=== PATIENT | female | born 2000 | race Caucasian/White ===

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

== ENCOUNTER → 2018-06-14 | Outpatient (CLI) | payer BC | LOC: M WUC 10:37 | PROVIDERS: ATTEND Registered Nurse | DX: L70.0 Acne vulgaris (principal) ==

== ENCOUNTER 2018-07-08 11:50 | Emergency (ER) | payer BC ==
[~2018-07-08] VITALS: Ht 170.2 cm; Wt 72.7 kg
[2018-07-08] MEDS ORDERED: DOXY50CA (11:55)
[2018-07-08] MEDS ORDERED: SPIR50TA4 (11:55)
[2018-07-08 13:10] LABS: BASO % 0.3 % (0.0-1.0); EOS # 0.1 10^3/uL (0.0-0.50); HEMATOCRIT 45.9 % (36.0-47.0); HEMOGLOBIN 15.4 g/dl (12.0-15.5); LYMPH # 1.6 10^3/uL (1.5-6.5); LYMPH % 22.9 % (24.0-44.0); MEAN CORPUSCULAR HEMOGLOBIN 31.6 pg (27.0-33.0); MEAN CORPUSCULAR HGB CONC 33.6 g/dl (32.0-36.5); MEAN CORPUSCULAR VOLUME 94.3 fl (80.0-96.0); MONO # 0.5 10^3/uL (0.0-0.8); MONO % 6.7 % (0.0-5.0); NEUTROPHILS # 4.6 10^3/uL (1.8-7.7); NEUTROPHILS % 67.8 % (36.0-66.0); PLATELET COUNT, AUTOMATED 269 10^3/uL (150-450); RED BLOOD COUNT 4.87 10^6/uL (4.00-5.40); WHITE BLOOD COUNT 6.9 10^3/uL (4.0-10.0)
[2018-07-08 13:24] LABS: HCG, SERUM QUALITATIVE NEGATIVE (NEGATIVE)
[2018-07-08 13:33] LABS: BLOOD UREA NITROGEN 12 MG/DL (7-18); C REACTIVE PROTEIN QUANTITATIV < 0.30 MG/DL (0.00-0.30); CALCIUM LEVEL 9.4 MG/DL (8.5-10.1); CARBON DIOXIDE LEVEL 30 MEQ/L (21-32); CHLORIDE LEVEL 104 MEQ/L (98-107); CREATININE FOR GFR 0.78 MG/DL (0.55-1.30); GLUCOSE, FASTING 66 MG/DL (70-100); MAGNESIUM LEVEL 2.1 MG/DL (1.4-2.0); POTASSIUM SERUM 4.6 MEQ/L (3.5-5.1); SODIUM LEVEL 137 MEQ/L (136-145); THYROID STIMULATING HORMONE 0.927 uIU/ML (0.463-3.98)
[2018-07-08 13:49] LABS: ERYTHROCYTE SEDIMENTATION RATE 4 mm/hr (0-20)
--- NOTE | 2018-07-08 14:17 | REP ---
CT Head without contrast HISTORY: Headache COMPARISON: 01/18/2014 There is no intraparenchymal hemorrhage, acute infarct, mass or midline shift. The ventricular system is normal in appearance. There is no extra cerebral collection. There is no fracture. The visualized sinuses are clear. IMPRESSION: There is no intracranial lesion. Electronically Signed by Bjorn Nova MD 07/08/2018 02:09 P
--- NOTE | 2018-07-08 14:21 | REP ---
CT cervical spine without contrast HISTORY: Headache COMPARISON: 01/18/2014 There is no acute fracture or subluxation. There is no disc bulge or herniation. The spinal canal and neural foramina are patent. The intervertebral discs and vertebral bodies are normal in height. IMPRESSION: There is no acute fracture or subluxation. Electronically Signed by Bjorn Nova MD 07/08/2018 02:13 P
[2018-07-08 15:21] VITALS: BP 118/72
== END 2018-07-08 15:37 | disposition home or self-care (01) ==
LOC: M ED 11:50
DX: R51 Headache (principal)

== ENCOUNTER → 2020-10-07 | Outpatient (CLI) | payer BC ==
[~2020-10-07] MED LIST: DOXY50CA; SPIR50TA4
[2020-10-07 16:00] LABS: URINE PREG TEST NEGATIVE (NEGATIVE)
[2020-10-07 16:14] LABS: BASO % 0.3 % (0.0-1.0); EOS # 0.1 10^3/uL (0.0-0.5); HEMATOCRIT 44.8 % (36.0-47.0); HEMOGLOBIN 14.9 g/dl (12.0-15.5); LYMPH # 1.6 10^3/uL (1.5-5.0); MEAN CORPUSCULAR HEMOGLOBIN 31.4 pg (27.0-33.0); MEAN CORPUSCULAR HGB CONC 33.3 g/dl (32.0-36.5); MEAN CORPUSCULAR VOLUME 94.5 fl (80.0-96.0); MONO # 0.5 10^3/uL (0.0-0.8); MONO % 7.7 % (2.0-8.0); NEUTROPHILS # 3.8 10^3/uL (1.5-8.5); NEUTROPHILS % 63.7 % (36.0-66.0); PLATELET COUNT, AUTOMATED 292 10^3/uL (150-450); RED BLOOD COUNT 4.74 10^6/uL (4.00-5.40)
[2020-10-07 16:41] LABS: ALT/SGPT 18 U/L (12-78); BILIRUBIN,DIRECT 0.1 MG/DL (0.0-0.2); BILIRUBIN,TOTAL 0.5 MG/DL (0.2-1.0); CHOLESTEROL LEVEL 169 MG/DL (<200); CHOLESTEROL RISK RATIO 3.313 (<5); HCG, SERUM QUANTITATIVE < 1.0 MIU/ML; HDL CHOLESTEROL 51 MG/DL (>40); LDL CHOLESTEROL 100 MG/DL (<100); NON-HDL-C 118 MG/DL; TOTAL PROTEIN 7.4 GM/DL (6.4-8.2); TRIGLYCERIDES LEVEL 88 MG/DL (<150)
== END ==
LOC: M WUC 13:38
DX: Z51.81 Encounter for therapeutic drug level monitoring (principal); Z79.899 Other long term (current) drug therapy; L70.0 Acne vulgaris

== ENCOUNTER 2021-02-16 09:02 | Emergency (ER) | payer BC ==
[~2021-02-16] VITALS: Ht 170.2 cm; Wt 83.8 kg
[2021-02-16] MEDS ORDERED: ABSO30CA PO (09:10)
[2021-02-16 09:45] LABS: HEMATOCRIT 44.7 % (36.0-47.0); HEMOGLOBIN 15.1 g/dl (12.0-15.5); MEAN CORPUSCULAR HEMOGLOBIN 31.3 pg (27.0-33.0); MEAN CORPUSCULAR HGB CONC 33.8 g/dl (32.0-36.5); MEAN CORPUSCULAR VOLUME 92.7 fl (80.0-96.0); PLATELET COUNT, AUTOMATED 303 10^3/uL (150-450); RED BLOOD COUNT 4.82 10^6/uL (4.00-5.40); WHITE BLOOD COUNT 6.2 10^3/uL (4.0-10.0)
[2021-02-16 09:49] LABS: BLOOD UREA NITROGEN 10 MG/DL (7-18); CALCIUM LEVEL 9.3 MG/DL (8.5-10.1); CARBON DIOXIDE LEVEL 30 MEQ/L (21-32); CHLORIDE LEVEL 102 MEQ/L (98-107); CREATININE FOR GFR 0.78 MG/DL (0.55-1.30); GLOMERULAR FILTRATION RATE > 60.0 (>60); GLUCOSE, FASTING 89 MG/DL (70-100); POTASSIUM SERUM 3.9 MEQ/L (3.5-5.1); SODIUM LEVEL 137 MEQ/L (136-145)
[2021-02-16 09:51] LABS: HCG, SERUM QUALITATIVE NEGATIVE (NEGATIVE)
[2021-02-16] MEDS ORDERED: ISOVUE-370 76% 100ML VIAL As Ordered ONE (10:13)
--- NOTE | 2021-02-16 10:20 | REP ---
INDICATION: chest pain s/p ablation COMPARISON: None. TECHNIQUE: Portable AP view of the chest FINDINGS: The mediastinum and cardiac silhouette are within normal limits for portable technique. The lung palu are clear without acute consolidation, effusion, or pneumothorax. Skeletal structures are intact. IMPRESSION: No acute cardiopulmonary process appreciated. <Electronically signed by Carlos Ceballos > 02/16/21 [id number]
--- NOTE | 2021-02-16 10:30 | REP ---
INDICATION: chest pain, 5 days s/p ablation r/o PE, pericardial effusion COMPARISON: None. TECHNIQUE: Axial contrast enhanced images from the thoracic inlet to the upper abdomen using pulmonary embolus technique with multiplanar re-formations. 75 ml Isovue 370 intravenous contrast material administered without complication. This CT examination was performed using the following dose reduction techniques: Automated exposure control, adjustment of mA and/or kv according to the patient's size, and use of iterative reconstruction technique. FINDINGS: Satisfactory enhancement of the pulmonary vasculature is achieved and no filling defects are identified to suggest pulmonary embolus. Further evaluation of the mediastinum demonstrates normal thoracic aorta, heart and pericardium. The bilateral lung paul are well aerated and clear without consolidation pleural effusion or pneumothorax. Tracheobronchial tree is patent. No nodule or mass lesion is identified. No adenopathy noted. Surrounding musculoskeletal structures intact IMPRESSION: No evidence for pulmonary embolus. No acute mediastinal or pleural parenchymal process. <Electronically signed by Carlos Ceballos > 02/16/21 102
[2021-02-16] MEDS ORDERED: IBUP80TA PO (12:08)
[2021-02-16 12:22] VITALS: BP 111/75
--- NOTE | 2021-02-16 16:14 | ECGEPIP ---
[facility] - ED Test Date: 2021-02-16 Pat Name: UMER MULLEN Department: Room: - Gender: Female Ambulatory Care: LR : 2000 Requested By: Nile Hoskins Order Number: [id number] Reading MD: Shahid Beckman Measurements Intervals [place] Rate: 64 P: 46 WV: 152 QRS: 18 QRSD: 78 T: 36 QT: 392 QTc: 404 Interpretive Statements Normal sinus rhythm with sinus arrhythmia Similar to tracing done 09-17-17 Electronically Signed on 02-16-2021 16:13:46 EST by Shahid Beckman
== END 2021-02-16 12:28 | disposition home or self-care (01) ==
LOC: M ED 09:02
DX: I30.9 Acute pericarditis, unspecified (principal); Z86.79 Personal history of other diseases of the circulatory system
CPT/HCPCS: 71045; 71275; 80048; 84703; 85027; 86140; 93005; 93041; 99285; Q9967

== ENCOUNTER → 2021-05-02 | Outpatient (CLI) | payer BC ==
[~2021-05-02] MED LIST changes: +ABSO30CA PO; +IBUP80TA PO
[2021-05-02 16:11] LABS: BASO % 0.6 % (0.0-1.0); EOS # 0.1 10^3/uL (0.0-0.5); HEMOGLOBIN 14.7 g/dl (12.0-15.5); LYMPH # 1.8 10^3/uL (1.5-5.0); LYMPH % 25.2 % (24.0-44.0); MEAN CORPUSCULAR HEMOGLOBIN 30.8 pg (27.0-33.0); MEAN CORPUSCULAR HGB CONC 32.7 g/dl (32.0-36.5); MEAN CORPUSCULAR VOLUME 94.3 fl (80.0-96.0); MONO # 0.6 10^3/uL (0.0-0.8); NEUTROPHILS # 4.5 10^3/uL (1.5-8.5); NEUTROPHILS % 63.4 % (36.0-66.0); PLATELET COUNT, AUTOMATED 296 10^3/uL (150-450); RED BLOOD COUNT 4.77 10^6/uL (4.00-5.40); WHITE BLOOD COUNT 7.1 10^3/uL (4.0-10.0)
[2021-05-02 16:16] LABS: HCG, SERUM QUALITATIVE NEGATIVE (NEGATIVE)
[2021-05-02 16:23] LABS: ALBUMIN 3.6 GM/DL (3.2-5.2); ALT/SGPT 21 U/L (12-78); BILIRUBIN,DIRECT < 0.1 MG/DL (0.0-0.2); BILIRUBIN,TOTAL 0.5 MG/DL (0.2-1.0); CHOLESTEROL LEVEL 235 MG/DL (<200); CHOLESTEROL RISK RATIO 5.222 (<5); HDL CHOLESTEROL 45 MG/DL (>40); LDL CHOLESTEROL 151 MG/DL (<100); NON-HDL-C 190 MG/DL; TOTAL PROTEIN 7.2 GM/DL (6.4-8.2); TRIGLYCERIDES LEVEL 194 MG/DL (<150)
[2021-05-03 09:48] LABS: URINE PREG TEST NEGATIVE (NEGATIVE)
== END ==
LOC: M WUC 11:25
DX: Z79.899 Other long term (current) drug therapy (principal)

== ENCOUNTER 2021-10-18 01:00 | Emergency (ER) | payer BC ==
[~2021-10-18] VITALS: Ht 170.2 cm; Wt 81.8 kg
[2021-10-18 01:33] LABS: BACTERIA, URINE MOD AMOUNT; HYALINE CAST, URINE NONE SEEN /lpf (0-1); SQUAMOUS EPITHELIAL CELL URINE MOD AMOUNT /hpf (SMALL AMT)
[2021-10-18 02:48] VITALS: BP 113/61
[2021-10-18 03:12] LABS: BASO % 0.4 % (0.0-1.0); EOS # 0.2 10^3/uL (0.0-0.5); EOS % 1.9 % (0.0-3.0); HEMATOCRIT 40.9 % (36.0-47.0); HEMOGLOBIN 13.7 g/dl (12.0-15.5); LYMPH # 1.3 10^3/uL (1.5-5.0); LYMPH % 11.6 % (24.0-44.0); MEAN CORPUSCULAR HEMOGLOBIN 31.7 pg (27.0-33.0); MEAN CORPUSCULAR HGB CONC 33.5 g/dl (32.0-36.5); MEAN CORPUSCULAR VOLUME 94.7 fl (80.0-96.0); MONO # 0.7 10^3/uL (0.0-0.8); MONO % 6.2 % (2.0-8.0); NEUTROPHILS % 79.5 % (36.0-66.0); PLATELET COUNT, AUTOMATED 258 10^3/uL (150-450); RED BLOOD COUNT 4.32 10^6/uL (4.00-5.40); WHITE BLOOD COUNT 11.3 10^3/uL (4.0-10.0)
[2021-10-18 03:44] LABS: HCG, SERUM QUALITATIVE NEGATIVE (NEGATIVE)
[2021-10-18 04:18] LABS: ALBUMIN 3.5 GM/DL (3.2-5.2); ALT/SGPT 20 U/L (12-78); BILIRUBIN,DIRECT < 0.1 MG/DL (0.0-0.2); BILIRUBIN,TOTAL 0.2 MG/DL (0.2-1.0); BLOOD UREA NITROGEN 14 MG/DL (7-18); CALCIUM LEVEL 8.8 MG/DL (8.5-10.1); CARBON DIOXIDE LEVEL 27 MEQ/L (21-32); CHLORIDE LEVEL 105 MEQ/L (98-107); CREATININE FOR GFR 0.78 MG/DL (0.55-1.30); GLOMERULAR FILTRATION RATE > 60.0 (>60); GLUCOSE, FASTING 107 MG/DL (70-100); LIPASE 149 U/L (73-393); SODIUM LEVEL 137 MEQ/L (136-145); TOTAL PROTEIN 6.8 GM/DL (6.4-8.2)
[2021-10-18] MEDS ORDERED: PHENAZOPYRIDINE 100 MG TAB PO ONE (04:55)
[2021-10-18] MEDS ORDERED: CEPHALEXIN 500 MG CAP PO ONE (04:55)
[2021-10-18] MEDS ORDERED: PYRI1TAB5 PO (04:56)
[2021-10-18] MEDS ORDERED: CEPH500C PO (04:56)
== END 2021-10-18 05:15 | disposition home or self-care (01) ==
LOC: M ED 01:00
DX: N39.0 Urinary tract infection, site not specified (principal)

== ENCOUNTER → 2022-05-03 | Outpatient (CLI) | payer BC ==
[~2022-05-03] MED LIST changes: +CEPH500C PO; +PYRI1TAB5 PO
[2022-05-03 13:43] LABS: BASO % 0.5 % (0.0-1.0); EOS # 0.1 10^3/uL (0.0-0.5); EOS % 1.8 % (0.0-3.0); HEMATOCRIT 42.4 % (36.0-47.0); HEMOGLOBIN 14.4 g/dl (12.0-15.5); LYMPH # 1.6 10^3/uL (1.5-5.0); LYMPH % 21.2 % (24.0-44.0); MEAN CORPUSCULAR HEMOGLOBIN 31.8 pg (27.0-33.0); MEAN CORPUSCULAR VOLUME 93.6 fl (80.0-96.0); MONO # 0.5 10^3/uL (0.0-0.8); NEUTROPHILS # 5.3 10^3/uL (1.5-8.5); PLATELET COUNT, AUTOMATED 289 10^3/uL (150-450); RED BLOOD COUNT 4.53 10^6/uL (4.00-5.40); WHITE BLOOD COUNT 7.7 10^3/uL (4.0-10.0)
[2022-05-03 14:14] LABS: ALBUMIN 3.7 G/DL (3.2-5.2); ALKALINE PHOSPHATASE 42 U/L (46-116); ALT/SGPT 16 U/L (7.0-40); AST/SGOT 14 U/L (<34); BILIRUBIN,DIRECT 0.1 MG/DL (<0.4); BILIRUBIN,TOTAL 0.5 MG/DL (0.3-1.2); BLOOD UREA NITROGEN 10 MG/DL (9-23); CALCIUM LEVEL 9.2 MG/DL (8.5-10.1); CARBON DIOXIDE LEVEL 28 MMOL/L (20-31); CHLORIDE LEVEL 104 MMOL/L (98-107); CREATININE FOR GFR 0.74 MG/DL (0.55-1.30); GLOMERULAR FILTRATION RATE > 60.0 (>60); GLUCOSE, FASTING 82 MG/DL (60-100); SODIUM LEVEL 137 MMOL/L (136-145)
[2022-05-03 14:30] LABS: HEPATITIS B SURFACE ANTIGEN NEGATIVE (NEGATIVE)
[2022-05-03 14:44] LABS: HIV SCREEN CENTAUR SOURCE NEGATIVE (NEGATIVE)
[2022-05-03 14:51] LABS: HEPATITIS C VIRUS ABY INDEX < 0.0 INDEX (<0.8)
[2022-05-03 14:52] LABS: HEPATITIS B CORE ANTIBODY IGM NEGATIVE (NEGATIVE)
== END ==
LOC: M RAD 11:51
PROVIDERS: ATTEND Nurse Practitioner Family
DX: L73.2 Hidradenitis suppurativa (principal)

== ENCOUNTER → 2023-05-15 | Outpatient (REF) | payer BC ==
[2023-05-15 16:47] LABS: URINE PREG TEST POSITIVE (NEGATIVE)
== END ==
LOC: M LAB REF 16:23
PROVIDERS: ATTEND Physician Assistant Medical
DX: Z32.01 Encounter for pregnancy test, result positive (principal)

== ENCOUNTER 2023-07-21 22:43 | Emergency (ER) | payer BC ==
[~2023-07-21] VITALS: Ht 170.2 cm; Wt 89.4 kg
[2023-07-21] MEDS ORDERED: MORPHINE 2 MG/ML 1ML VIAL IV ONE (23:50)
[2023-07-22] MEDS: METOCLOPRAMIDE INJ 10MG/2ML VIAL IV ONE (00:13)
[2023-07-22] MEDS: NS 1,000 ML IV ONE (00:14)
[2023-07-22 00:38] LABS: BASO # 0.1 10^3/uL (0.0-0.2); BASO % 0.2 % (0.0-1.0); EOS % 0.1 % (0.0-3.0); HEMATOCRIT 42.3 % (36.0-47.0); HEMOGLOBIN 14.7 g/dl (12.0-15.5); LYMPH # 0.6 10^3/uL (1.5-5.0); MEAN CORPUSCULAR HEMOGLOBIN 31.9 pg (27.0-33.0); MEAN CORPUSCULAR HGB CONC 34.8 g/dl (32.0-36.5); MEAN CORPUSCULAR VOLUME 91.8 fl (80.0-96.0); MONO # 0.5 10^3/uL (0.0-0.8); MONO % 2.4 % (2.0-8.0); NEUTROPHILS # 19.7 10^3/uL (1.5-8.5); NEUTROPHILS % 93.8 % (36.0-66.0); PLATELET COUNT, AUTOMATED 232 10^3/uL (150-450); RED BLOOD COUNT 4.61 10^6/uL (4.00-5.40)
[2023-07-22 01:05] LABS: LIPASE 33 U/L (12-53)
[2023-07-22 01:07] LABS: ALBUMIN 3.4 G/DL (3.2-5.2); ALKALINE PHOSPHATASE 37 U/L (46-116); ALT/SGPT 15 U/L (7.0-40); AST/SGOT 10 U/L (<34); BILIRUBIN,DIRECT 0.1 MG/DL (<0.4); BILIRUBIN,TOTAL 0.4 MG/DL (0.3-1.2); BLOOD UREA NITROGEN 12 MG/DL (9-23); CALCIUM LEVEL 9.2 MG/DL (8.5-10.1); CARBON DIOXIDE LEVEL 23 MMOL/L (20-31); CHLORIDE LEVEL 104 MMOL/L (98-107); CREATININE FOR GFR 0.53 MG/DL (0.55-1.30); GLOMERULAR FILTRATION RATE > 60.0 (>60); GLUCOSE, FASTING 120 MG/DL (60-100); POTASSIUM SERUM 4.1 MMOL/L (3.5-5.1); SODIUM LEVEL 135 MMOL/L (136-145); TOTAL PROTEIN 6.9 G/DL (5.7-8.2)
[2023-07-22 02:15] LABS: BASO % 0.2 % (0.0-1.0); EOS % 0.1 % (0.0-3.0); HEMOGLOBIN 13.9 g/dl (12.0-15.5); LYMPH # 0.3 10^3/uL (1.5-5.0); LYMPH % 1.5 % (24.0-44.0); MEAN CORPUSCULAR HGB CONC 34.8 g/dl (32.0-36.5); MONO # 0.2 10^3/uL (0.0-0.8); MONO % 1.4 % (2.0-8.0); NEUTROPHILS # 16.4 10^3/uL (1.5-8.5); NEUTROPHILS % 96.4 % (36.0-66.0); PLATELET COUNT, AUTOMATED 208 10^3/uL (150-450); RED BLOOD COUNT 4.35 10^6/uL (4.00-5.40)
[2023-07-22] MEDS ORDERED: REGL10TA6 PO (02:22)
[2023-07-22] MEDS: ONDANSETRON 4MG 2ML VIAL IV ONE (02:44)
[2023-07-22 03:51] VITALS: BP 130/70; TEMP 98.2; O2SAT 100
== END 2023-07-22 03:55 | disposition home or self-care (01) ==
LOC: M ED 22:43
DX: A08.11 Acute gastroenteropathy due to Norwalk agent (principal); Z79.899 Other long term (current) drug therapy
CPT/HCPCS: 80048; 80076; 81001; 83605; 83690; 85025; 87040; 87086; 87486; 87507; 87581; 87633; 87798; 96365; 96366; 96375; 99283; J2405; J2765

== ENCOUNTER → 2023-07-26 | Outpatient (REF) | payer BC ==
[~2023-07-26] MED LIST changes: +REGL10TA6 PO
[2023-07-26 18:12] LABS: HEMATOCRIT 40.1 % (36.0-47.0); HEMOGLOBIN 13.6 g/dl (12.0-15.5); MEAN CORPUSCULAR HEMOGLOBIN 31.8 pg (27.0-33.0); MEAN CORPUSCULAR HGB CONC 33.9 g/dl (32.0-36.5); MEAN CORPUSCULAR VOLUME 93.7 fl (80.0-96.0); PLATELET COUNT, AUTOMATED 257 10^3/uL (150-450); RED BLOOD COUNT 4.28 10^6/uL (4.00-5.40); WHITE BLOOD COUNT 10.1 10^3/uL (4.0-10.0)
[2023-07-26 18:50] LABS: HIV 1&2 SCREEN NEGATIVE (NEGATIVE)
[2023-07-26 18:59] LABS: HEPATITIS C VIRUS ABY INDEX 0.02 INDEX (<0.8)
[2023-07-26 20:39] LABS: GC DNA AMPLIFICATION NEGATIVE (NEGATIVE)
== END ==
LOC: M LABDRAWP 17:20
PROVIDERS: ATTEND Advanced Practice Midwife
DX: Z34.01 Encounter for supervision of normal first pregnancy, first trimester (principal)

== ENCOUNTER → 2023-09-07 | Outpatient (CLI) | payer BC, MEDICAID | LOC: M WHC 07:30 | PROVIDERS: ATTEND Advanced Practice Midwife | DX: Z34.02 Encounter for supervision of normal first pregnancy, second trimester (principal) ==

== ENCOUNTER → 2023-10-08 | Outpatient (CLI) | payer BC, MEDICAID ==
[2023-10-08 13:20] LABS: HEMATOCRIT 37.3 % (36.0-47.0); HEMOGLOBIN 12.6 g/dl (12.0-15.5); MEAN CORPUSCULAR HEMOGLOBIN 32.2 pg (27.0-33.0); MEAN CORPUSCULAR HGB CONC 33.8 g/dl (32.0-36.5); MEAN CORPUSCULAR VOLUME 95.4 fl (80.0-96.0); PLATELET COUNT, AUTOMATED 228 10^3/uL (150-450); RED BLOOD COUNT 3.91 10^6/uL (4.00-5.40); WHITE BLOOD COUNT 9.7 10^3/uL (4.0-10.0)
[2023-10-08 13:48] LABS: GLUCOSE CHALLENGE TEST 1 HOUR 107 MG/DL (LESS THAN 140)
[2023-10-08 14:25] LABS: HIV 1&2 SCREEN NEGATIVE (NEGATIVE)
[2023-10-08 14:31] LABS: HEPATITIS C VIRUS ABY INDEX 0.03 INDEX (<0.8)
== END ==
LOC: M PLALAB 09:14
PROVIDERS: ATTEND Specialist
DX: Z36.89 Encounter for other specified antenatal screening (principal); Z3A.23 23 weeks gestation of pregnancy

== ENCOUNTER → 2023-11-20 | Outpatient (CLI) | payer BC, MEDICAID ==
[2023-11-20 13:13] LABS: HEMATOCRIT 39.5 % (36.0-47.0); HEMOGLOBIN 13.6 g/dl (12.0-15.5); MEAN CORPUSCULAR HEMOGLOBIN 32.1 pg (27.0-33.0); MEAN CORPUSCULAR HGB CONC 34.4 g/dl (32.0-36.5); MEAN CORPUSCULAR VOLUME 93.2 fl (80.0-96.0); PLATELET COUNT, AUTOMATED 193 10^3/uL (150-450); RED BLOOD COUNT 4.24 10^6/uL (4.00-5.40); WHITE BLOOD COUNT 8.8 10^3/uL (4.0-10.0)
[2023-11-20 13:14] LABS: URIC ACID 5.5 MG/DL (3.1-7.8)
[2023-11-20 13:16] LABS: LDH LACTATE DEHYDROGENASE 169 U/L (120-246)
[2023-11-20 13:17] LABS: ALT/SGPT 14 U/L (7.0-40); AST/SGOT 15 U/L (<34); BILIRUBIN,TOTAL 0.2 MG/DL (0.3-1.2); GLOMERULAR FILTRATION RATE > 60.0 (>60)
[2023-11-20 13:39] LABS: TOTAL PROTEIN,RANDOM URINE 59.4 MG/DL (0.0-14.0)
[2023-11-20 13:42] LABS: CREATININE,RANDOM URINE 159.7 MG/DL
== END ==
LOC: M PLALAB 09:46
PROVIDERS: ATTEND Specialist
DX: Z34.03 Encounter for supervision of normal first pregnancy, third trimester (principal)

== ENCOUNTER 2023-11-26 09:30 | Outpatient (CLI) | payer BC, MEDICAID ==
[~2023-11-26] VITALS: Ht 170.2 cm; Wt 102.0 kg
[2023-11-26 09:52] VITALS: BP 154/96
[2023-11-26 09:59] VITALS: BP 142/75
[2023-11-26] MEDS ORDERED: AMOX250C3 PO (09:59)
[2023-11-26] MEDS ORDERED: MUCI1TAB16 PO (09:59)
[2023-11-26] MEDS ORDERED: ALBU8.5H INH (09:59)
[2023-11-26] MEDS ORDERED: AMOX875T2 PO (10:01)
[2023-11-26 10:09] VITALS: BP 131/73
[2023-11-26] MEDS: BETAMETHASONE SOLUSPAN 6MG/ML 5ML VIAL IM SCH (10:47)
[2023-11-26 11:06] LABS: HEMOGLOBIN 12.8 g/dl (12.0-15.5); MEAN CORPUSCULAR HEMOGLOBIN 32.1 pg (27.0-33.0); MEAN CORPUSCULAR HGB CONC 34.6 g/dl (32.0-36.5); MEAN CORPUSCULAR VOLUME 92.7 fl (80.0-96.0); PLATELET COUNT, AUTOMATED 207 10^3/uL (150-450); RED BLOOD COUNT 3.99 10^6/uL (4.00-5.40); WHITE BLOOD COUNT 9.5 10^3/uL (4.0-10.0)
[2023-11-26 11:24] LABS: URIC ACID 5.9 MG/DL (3.1-7.8)
[2023-11-26 11:26] LABS: LDH LACTATE DEHYDROGENASE 177 U/L (120-246)
[2023-11-26 11:26] LABS: CREATININE,RANDOM URINE 138.6 MG/DL
[2023-11-26 11:27] LABS: ALT/SGPT 14 U/L (7.0-40); AST/SGOT 15 U/L (<34); BILIRUBIN,TOTAL 0.2 MG/DL (0.3-1.2); CREATININE FOR GFR 0.77 MG/DL (0.55-1.30); GLOMERULAR FILTRATION RATE > 60.0 (>60)
[2023-11-26 11:32] LABS: TOTAL PROTEIN,RANDOM URINE 139.1 MG/DL (0.0-14.0)
[2023-11-26 11:46] VITALS: BP 129/86
[2023-11-26] MEDS: ACETAMINOPHEN 500 MG TAB PO ONE (12:25)
[2023-11-26] MEDS: FLUCONAZOLE 50MG TABLET PO ONE (14:00)
== END 2023-11-26 14:00 | disposition home or self-care (01) ==
LOC: M LDO 09:30
PROVIDERS: ATTEND Advanced Practice Midwife
DX: O14.93 Unspecified pre-eclampsia, third trimester (principal); O23.593 Infection of other part of genital tract in pregnancy, third trimester; B37.9 Candidiasis, unspecified; Z3A.32 32 weeks gestation of pregnancy
CPT/HCPCS: 36415; 59025; 76816; 82247; 82570; 83615; 84156; 84450; 84460; 84550; 85027; 96372; G0463; J0702

== ENCOUNTER 2023-11-27 10:24 | Outpatient (CLI) | payer BC, MEDICAID ==
[~2023-11-27] VITALS: Ht 170.2 cm; Wt 101.7 kg
[2023-11-27] VITALS (11 sets, daily range): BP systolic 124–171; BP diastolic 71–86; TEMP 98.1
[~2023-11-27 10:24] MED LIST changes: +ALBU8.5H INH; +AMOX250C3 PO; +AMOX875T2 PO; +MUCI1TAB16 PO
[2023-11-27] MEDS: BETAMETHASONE SOLUSPAN 6MG/ML 5ML VIAL IM ONE (12:19)
[2023-11-27] MEDS: AUGMENTIN 875 MG TAB PO SCH (21:00)
[2023-11-28 00:08] VITALS: BP 138/80
[2023-11-28 03:34] VITALS: BP 133/79
[2023-11-28 06:00] VITALS: BP 134/68
[2023-11-29] MEDS ORDERED: AMOX125C PO (18:47)
[2023-11-29] MEDS ORDERED: ACET-897 PO (18:49)
[2023-11-29] MEDS ORDERED: PRENTAB9 PO (18:49)
== END 2023-11-28 09:40 | disposition home or self-care (01) ==
LOC: M LDO 10:24
PROVIDERS: ATTEND Specialist
DX: O14.93 Unspecified pre-eclampsia, third trimester (principal); Z3A.32 32 weeks gestation of pregnancy
CPT/HCPCS: 59025; 96372; G0463; J0702

== ENCOUNTER 2023-11-29 18:22 | Inpatient (IN) | payer BC, MEDICAID ==
[~2023-11-29] VITALS: Ht 170.2 cm; Wt 103.6 kg
[2023-11-29] MEDS ORDERED: AMOX125C PO (18:47)
[2023-11-29] MEDS ORDERED: ACET-897 PO (18:49)
[2023-11-29] MEDS ORDERED: PRENTAB9 PO (18:49)
[2023-11-29] MEDS ORDERED: HOME MED LIST COMPLETE! XX SCH (18:50)
[2023-11-29 18:53] VITALS: BP 159/88; O2SAT 97
[2023-11-29 18:54] VITALS: BP 154/86
[2023-11-29 19:10] VITALS: BP 151/85
[2023-11-29 19:25] VITALS: BP 156/82
[2023-11-29 19:57] VITALS: BP 144/83
[2023-11-29 20:41] LABS: HEMATOCRIT 37.6 % (36.0-47.0); HEMOGLOBIN 12.8 g/dl (12.0-15.5); MEAN CORPUSCULAR HEMOGLOBIN 31.8 pg (27.0-33.0); MEAN CORPUSCULAR VOLUME 93.3 fl (80.0-96.0); PLATELET COUNT, AUTOMATED 240 10^3/uL (150-450); RED BLOOD COUNT 4.03 10^6/uL (4.00-5.40); WHITE BLOOD COUNT 19.4 10^3/uL (4.0-10.0)
[2023-11-29 21:01] LABS: ALBUMIN 2.4 G/DL (3.2-5.2); ALKALINE PHOSPHATASE 108 U/L (46-116); ALT/SGPT 13 U/L (7.0-40); AST/SGOT 20 U/L (<34); BILIRUBIN,TOTAL 0.2 MG/DL (0.3-1.2); BLOOD UREA NITROGEN 21 MG/DL (9-23); CALCIUM LEVEL 9.1 MG/DL (8.5-10.1); CARBON DIOXIDE LEVEL 23 MMOL/L (20-31); CHLORIDE LEVEL 110 MMOL/L (98-107); CREATININE FOR GFR 0.72 MG/DL (0.55-1.30); GLOMERULAR FILTRATION RATE > 60.0 (>60); GLUCOSE, FASTING 81 MG/DL (60-100); POTASSIUM SERUM 4.3 MMOL/L (3.5-5.1); SODIUM LEVEL 138 MMOL/L (136-145); TOTAL PROTEIN 5.7 G/DL (5.7-8.2)
[2023-11-29] MEDS: NS 500 ML IV ONE (21:39)
[2023-11-29] MEDS: LR 1,000 ML IV SCH (21:46)
[2023-11-29 22:10] VITALS: BP 152/74
[2023-11-30] VITALS (20 sets, daily range): BP systolic 118–178; BP diastolic 59–92; TEMP 97.9; O2SAT 96–99
[2023-11-30] MEDS: hydrALAZINE 20MG/ML 1ML VIAL IV STA ×2 (05:17→05:47)
[2023-11-30] MEDS: NIFEdipine 30MG XL TAB PO STA (05:49)
[2023-11-30 05:51] LABS: HEMATOCRIT 36.6 % (36.0-47.0); HEMOGLOBIN 12.6 g/dl (12.0-15.5); MEAN CORPUSCULAR HEMOGLOBIN 31.7 pg (27.0-33.0); MEAN CORPUSCULAR HGB CONC 34.4 g/dl (32.0-36.5); PLATELET COUNT, AUTOMATED 213 10^3/uL (150-450); RED BLOOD COUNT 3.98 10^6/uL (4.00-5.40); WHITE BLOOD COUNT 17.3 10^3/uL (4.0-10.0)
[2023-11-30] MEDS ORDERED: OXYTOCIN DRIP 30 UNITS in IV 1 EA IV PRN (05:55)
[2023-11-30] MEDS ORDERED: METHYLERGONOVINE MALEATE 0.2MG/ML 1ML VIAL IM PRN (05:55)
[2023-11-30] MEDS ORDERED: TRANEXAMIC ACID INJection 1,000 MG in NS 100 ML IV PRN (05:55)
[2023-11-30 06:11] LABS: URIC ACID 6.8 MG/DL (3.1-7.8)
[2023-11-30 06:14] LABS: ALT/SGPT 12 U/L (7.0-40); AST/SGOT 18 U/L (<34); BILIRUBIN,TOTAL 0.2 MG/DL (0.3-1.2); CREATININE FOR GFR 0.68 MG/DL (0.55-1.30); GLOMERULAR FILTRATION RATE > 60.0 (>60); LDH LACTATE DEHYDROGENASE 237 U/L (120-246)
[2023-11-30] MEDS: ceFAZolin SOD 2 GM in IV 1 EA IV ONE (06:16)
[2023-11-30] MEDS: BICITRA 30ML SOLN UDC PO ONE (06:17)
[2023-11-30] MEDS ORDERED: MORPHINE PRES-FREE INJ 10 MG/10 ML VIAL As Ordered ONE (06:44)
[2023-11-30 06:56] LABS: HEPATITIS C VIRUS ABY INDEX < 0.02 INDEX (<0.8)
[2023-11-30] MEDS ORDERED: OXYTOCIN 30UNITS IN 0.9% NaCl 500ML IV BAG As Ordered ONE (06:57)
[2023-11-30] MEDS ORDERED: CARBOPROST TROMETHAMINE 250 MCG/ML AMP IM PRN (07:00)
[2023-11-30] MEDS ORDERED: ONDANSETRON 4MG 2ML VIAL As Ordered ONE (07:03)
[2023-11-30] MEDS ORDERED: ACETAMINOPHEN 1000MG 100ML IV BAG As Ordered ONE (07:05)
[2023-11-30] MEDS ORDERED: KETOROLAC 60MG 2ML VIAL As Ordered ONE (07:06)
[2023-11-30] MEDS ORDERED: METOCLOPRAMIDE INJ 10MG/2ML VIAL As Ordered ONE (07:14)
[2023-11-30] MEDS ORDERED: RHO(D) IMMUNE GLOBULIN/MALTOSE 500MCG(2500IU)/2.2ML VIAL (WINRHO) IM SCH (07:55)
[2023-11-30] MEDS ORDERED: SIMETHICONE 80MG CHEW TAB PO PRN (07:55)
[2023-11-30] MEDS ORDERED: oxyCODONE 5MG TAB PO PRN ×2 (07:55→08:45)
[2023-11-30] MEDS: OXYTOCIN DRIP 30 UNITS in IV 1 EA IV SCH (08:09)
[2023-11-30] MEDS ORDERED: OXYC-517 PO (08:19)
[2023-11-30] MEDS ORDERED: IBUP-1022 PO (08:19)
[2023-11-30] MEDS ORDERED: ACET-683 PO (08:19)
[2023-11-30] MEDS ORDERED: COLA100C5 PO (08:19)
[2023-11-30] MEDS ORDERED: METOCLOPRAMIDE INJ 10MG/2ML VIAL IV PRN (08:45)
[2023-11-30] MEDS ORDERED: **NOTE PATIENT COMMENT** MISC XX SCH (08:45)
[2023-11-30] MEDS ORDERED: MEPERIDINE 25 MG/ML 1ML VIAL IV PRN (08:45)
[2023-11-30] MEDS ORDERED: fentaNYL 100 MCG/2 ML INJECTION IV PRN (08:45)
[2023-11-30] MEDS ORDERED: ONDANSETRON 4MG 2ML VIAL IV PRN (08:45)
[2023-11-30] MEDS ORDERED: NALOXONE INJ 0.4MG/1ML VIAL IV PRN ×2 (08:45)
[2023-11-30] MEDS: LR 1,000 ML IV SCH (08:45)
[2023-11-30 09:05] LABS: CORD GAS ABE A -5.3; CORD GAS HCO3 A 22.9 MMOL/L; CORD GAS O2 SAT A 28.8 %; CORD GAS PCO2 A 54.7 mmHg; CORD GAS PH A 7.24 UNITS; CORD GAS PO2 A 16.5 mmHg; CORD GAS SBC A 18.5 MMOL/L; CORD GAS TCO2 A 24.6 MMOL/L
[2023-11-30 09:08] LABS: CORD GAS ABE V -4.5
[2023-11-30 09:10] LABS: CORD GAS HCO3 V 22.8 MMOL/L; CORD GAS PCO2 V 49.9 mmHg; CORD GAS PH V 7.278 UNITS; CORD GAS TCO2 V 24.3 MMOL/L
[2023-11-30 09:23] LABS: CORD GAS PO2 V < 10.0 mmHg
[2023-11-30] MEDS ORDERED: diphenhydrAMINE 50MG/ML VIAL As Ordered ONE (09:29)
[2023-11-30] MEDS: diphenhydrAMINE 50MG/ML VIAL IV PRN (09:31)
[2023-11-30] MEDS: PRENATAL VITAMINS CHEWABLE TABLET PO SCH (10:52)
[2023-11-30] MEDS: SLF 3 ML SYR IV SCH (11:53)
[2023-11-30] MEDS: ACETAMINOPHEN 500 MG TAB PO SCH (12:54)
[2023-11-30] MEDS: ENOXAPARIN 40MG/0.4ML SYRINGE (J1650 PER 10MG) SC SCH (12:54)
[2023-11-30] MEDS: KETOROLAC 30 MG/ML 1ML VIAL IV SCH (14:16)
[2023-12-01] VITALS (7 sets, daily range): BP systolic 132–142; BP diastolic 74–90; O2SAT 96–98
[2023-12-01] MEDS: NIFEdipine 30MG XL TAB PO SCH (06:09)
[2023-12-01 07:22] LABS: HEMATOCRIT 34.6 % (36.0-47.0); HEMOGLOBIN 11.9 g/dl (12.0-15.5); MEAN CORPUSCULAR HEMOGLOBIN 31.7 pg (27.0-33.0); MEAN CORPUSCULAR HGB CONC 34.4 g/dl (32.0-36.5); MEAN CORPUSCULAR VOLUME 92.3 fl (80.0-96.0); PLATELET COUNT, AUTOMATED 203 10^3/uL (150-450); RED BLOOD COUNT 3.75 10^6/uL (4.00-5.40); WHITE BLOOD COUNT 20.8 10^3/uL (4.0-10.0)
[2023-12-01 07:57] LABS: ALBUMIN 1.9 G/DL (3.2-5.2); ALKALINE PHOSPHATASE 90 U/L (46-116); ALT/SGPT 11 U/L (7.0-40); AST/SGOT 19 U/L (<34); BILIRUBIN,TOTAL 0.2 MG/DL (0.3-1.2); BLOOD UREA NITROGEN 19 MG/DL (9-23); CALCIUM LEVEL 8.4 MG/DL (8.5-10.1); CARBON DIOXIDE LEVEL 24 MMOL/L (20-31); CHLORIDE LEVEL 108 MMOL/L (98-107); CREATININE FOR GFR 0.73 MG/DL (0.55-1.30); GLOMERULAR FILTRATION RATE > 60.0 (>60); GLUCOSE, FASTING 79 MG/DL (60-100); POTASSIUM SERUM 4.3 MMOL/L (3.5-5.1); SODIUM LEVEL 136 MMOL/L (136-145); TOTAL PROTEIN 4.9 G/DL (5.7-8.2)
[2023-12-01] MEDS: IBUPROFEN 600MG TAB PO SCH (10:11)
[2023-12-01] MEDS: ALBUTEROL 90 MCG/ACT 8GM HFA INHALER INH PRN (16:33)
[2023-12-01] MEDS: oxyCODONE 5MG TAB PO PRN (17:55)
[2023-12-02 02:00] VITALS: BP 143/81; O2SAT 100
[2023-12-02 05:35] VITALS: BP 148/88; O2SAT 95
[2023-12-02] MEDS ORDERED: MEASLES,MUMPS,RUBELLA VACCINE INJ (MMR-II) SC.IMMUN ONE (09:00)
[2023-12-02 10:22] VITALS: BP 135/76; O2SAT 100
[2023-12-02 14:15] VITALS: BP 149/97; O2SAT 100
[2023-12-02 14:47] VITALS: BP 144/86
[2023-12-02 18:00] VITALS: BP 138/80; O2SAT 98
[2023-12-03 05:55] VITALS: BP 133/87; O2SAT 97
[2023-12-03 06:34] LABS: HEMATOCRIT 38.2 % (36.0-47.0); MEAN CORPUSCULAR HEMOGLOBIN 32.3 pg (27.0-33.0); MEAN CORPUSCULAR VOLUME 94.8 fl (80.0-96.0); PLATELET COUNT, AUTOMATED 200 10^3/uL (150-450); RED BLOOD COUNT 4.03 10^6/uL (4.00-5.40); WHITE BLOOD COUNT 12.2 10^3/uL (4.0-10.0)
[2023-12-03 10:42] VITALS: BP 132/76
[2023-12-03] MEDS ORDERED: NIFE1TAB52 PO (10:47)
[2023-12-03] MEDS: DOCUSATE SODIUM 100MG CAPSULE PO PRN (10:49)
[2023-12-03 10:51] VITALS: BP 123/75
== END 2023-12-03 12:05 | disposition home or self-care (01) | DRG 540 ==
LOC: M LDO 18:22 → M LDI 18:23 → OBSVTOIN 11-30 05:52 → M OBS 11-30 15:52
PROVIDERS: ADMIT Obstetrics & Gynecology; ATTEND Obstetrics & Gynecology
PROC: 10D00Z1 Extraction of Products of Conception, Low, Open Approach (ICD-10-PCS; principal; 2023-11-30 06:45)
DX: O36.8130 Decreased fetal movements, third trimester, not applicable or unspecified (principal); O76 Abnormality in fetal heart rate and rhythm complicating labor and delivery; Z37.0 Single live birth; Z3A.32 32 weeks gestation of pregnancy; O14.24 HELLP syndrome, complicating childbirth